=== PATIENT | female | born 1940 | race Caucasian/White ===

== ENCOUNTER 2018-02-09 02:30 | Inpatient (IN) | payer MEDICARE ==
[2018-02-08 13:24] LABS: INR 0.95
[~2018-02-09] VITALS: Ht 167.6 cm; Wt 56.7 kg
[~2018-02-09 02:30] MED LIST: ALBU90AE PO; ALPR-429 PO; ASPI-757 PO; BIMA2.5D5 OP; BUDE10.2 INH; ESTR0.62 PO; HYDR-318 PO; IMI25 PO; LOSA25TA50 PO; MAX75 PO; METO25TA23 PO; MIRA25TA PO; OLME5TAB8 PO; OMEP40CA48 PO; POTA-28 PO; RANI-318 PO; SERT-184 PO; TURM1POW2 MC; [UNRECOGNIZED DRUG - CODE] PO
--- NOTE | 2018-02-09 07:10 | LEVENE H&P ---
DATE OF ADMISSION: February 09, 2018 IDENTIFICATION/CHIEF COMPLAINT The patient is a 77-year-old woman with a chief complaint of left knee pain. HISTORY OF PRESENT ILLNESS The patient has a long standing history of knee arthritis, progressively painful and debilitating, refractory to conservative care. Surgery is indicated to relieve symptoms after failure of nonoperative measures. PAST MEDICAL HISTORY 1. Notable for irregular heart beat. 2. Hypertension. 3. Sleep apnea. 4. Reactive airway disease. 5. COPD. 6. Acid reflux disease. PAST SURGICAL HISTORY Notable for contralateral knee replacement as well as knee arthroscopy. ALLERGIES PENICILLIN CLONIDINE CURRENT MEDICATIONS 1. Benicar 5 mg 2 tablets p.o. per day. 2. Metoprolol 50 mg p.o. q day. 3. Myrbetriq 25 mg p.o. q day. 4. Omeprazole 40 mg p.o. q day. 5. Ranitidine 150 mg p.o. q day. 6. Sertraline 50 mg p.o. q day. 7. Symbicort 2 puffs b.i.d. 8. Triamterene/Hydrochlorothiazide 75/50 mg p.o. q day. FAMILY HISTORY Notable for mother and father both with cancer. SOCIAL HISTORY Notable for smoking about a pack of cigarettes every 3 days for 60 years. She rarely drinks wine on a social basis. REVIEW OF SYSTEMS Negative. PHYSICAL EXAMINATION GENERAL: This is a healthy female who appears stated age. HEENT: Normocephalic, atraumatic. Extraocular muscles intact. NECK: Supple, non-tender. LUNGS: Clear to auscultation bilaterally. HEART: Regular rate and rhythm. ABDOMEN: Soft. ORTHOPEDIC EXAMINATION Left knee has an effusion. She has crepitus noted. She is stiff at the end- range. Gross stability is good. Extensor function is intact. Calves are nontender. Neurovascular function is intact. RADIOGRAPHS Demonstrate degenerative changes in the knee. ASSESSMENT Left knee degenerative joint disease, progressively painful and debilitating, refractory to conservative care. PLAN Per patient request, we are going to proceed with knee replacement. The nature of the procedure, the risks, benefits, the anticipated rehabilitative course were reviewed. Risks include but are not limited to , major medical or anesthetic complication, infection, neurovascular injury, stiffness, scarring, fracture, tendon rupture, tendon rupture, instability, implant loosening, migration or failure, blood transfusion, re-tear, progressive arthritis, persistent or recurrent pain or symptoms, need for additional surgery and other unforeseen. She understands and wishes to proceed. A signed permit is placed in the chart. No guarantees are given or implied. AVA
[2018-02-09] MEDS ORDERED: LIDOCAINE/SOD BICARB 8.4% SYR ID ONE (10:00)
[2018-02-09] MEDS ORDERED: TRANEXAMIC AC 1000 MG/10ML SDV 1,000 MG in DEXTROSE 5% 50 ML BAG 50 ML IV ONE (10:00)
[2018-02-09] MEDS ORDERED: MIDAZOLAM 2 MG/2 ML VIAL IVP PRN (10:00)
[2018-02-09] MEDS ORDERED: BACITRACIN 50000 UNIT/VIAL 100,000 UNIT in NS 0.9% 3000 ML IRRIGATION BAG 3,000 ML IR ONE (10:00)
[2018-02-09] MEDS ORDERED: PREGABALIN 75 MG CAPSULE PO ONE (10:00)
[2018-02-09] MEDS ORDERED: cloNIDine EPIDUR INJ 100MCG/ML 40 MCG, ROPIVACAINE 0.5% 20 ML VIAL 25 ML, EPINEPHrine H... INJ ONE ×2 (10:00→14:00)
[2018-02-09] MEDS ORDERED: CELECOXIB 200 MG CAP PO ONE (10:00)
[2018-02-09] MEDS ORDERED: CLINDAMYCIN(*) 900 MG/NS 50 ML 50 ML IVPB ONE (10:00)
[2018-02-09] MEDS ORDERED: ACETAMINOPHEN 500 MG TAB PO ONE (10:00)
[2018-02-09] MEDS ORDERED: NORMOSOL R SOLN(*) 1000 ML BAG 1,000 ML IV PRN ×2 (10:00→17:20)
[2018-02-09] MEDS ORDERED: NS(*) 0.9% 1000 ML BAG 1,000 ML IV ONE (12:15)
[2018-02-09 12:19] VITALS: BP 160/83
[2018-02-09] MEDS ORDERED: fentaNYL CITR 100 MCG/2 ML AMP ONE ×2 (13:20→17:41)
[2018-02-09] MEDS ORDERED: DEXAMETHASONE SOD 4 MG/ML VIAL ONE (13:20)
[2018-02-09] MEDS ORDERED: ONDANSETRON 4 MG/2 ML VIAL ONE (13:20)
[2018-02-09] MEDS ORDERED: LIDOCAINE MPF 1% 5 ML VIAL ONE (13:20)
[2018-02-09] MEDS ORDERED: PROPOFOL EMUL(*) 10MG/ML 20 ML 20 ML ONE (13:20)
[2018-02-09] MEDS ORDERED: KETAMINE HCL 200 MG/20 ML MDV ONE (13:25)
[2018-02-09] MEDS ORDERED: MIDAZOLAM 2 MG/2 ML VIAL ONE (14:17)
[2018-02-09] MEDS ORDERED: LACTATED RINGER 3000 ML BAG IR ONE (15:57)
[2018-02-09] MEDS ORDERED: NS 0.9% IRRIGATION 1000ML PLCT IR ONE (15:58)
[2018-02-09] MEDS ORDERED: ALBUMIN HUMAN 5% 250 ML BTL 250 ML ONE (17:03)
[2018-02-09] MEDS ORDERED: ACETAMINOPHEN 325 MG TAB PO PRN (17:20)
[2018-02-09] MEDS ORDERED: diphenhydrAMINE 25 MG CAP PO PRN (17:20)
[2018-02-09] MEDS ORDERED: ZOLPIDEM TARTRATE 5 MG TAB PO PRN (17:20)
[2018-02-09] MEDS ORDERED: PROMETHAZINE 25 MG/ML 1 ML AMP IVP PRN (17:20)
[2018-02-09] MEDS ORDERED: MAGNESIUM HYDROXIDE* 30ML UDCP PO PRN (17:20)
[2018-02-09] MEDS ORDERED: BENZOCAINE/MENTHOL 1 EACH LOZG PO PRN (17:20)
[2018-02-09] MEDS ORDERED: FLUSH 10 ML SYR IVP PRN (17:20)
[2018-02-09] MEDS ORDERED: diphenhydrAMINE 50 MG/ML VIAL IVP PRN (17:20)
[2018-02-09] MEDS ORDERED: BISACODYL 10 MG SUPP PR PRN (17:20)
[2018-02-09 18:22] VITALS: BP 114/73
[2018-02-09] MEDS ORDERED: ALBUTEROL 8 GM INHALER INH PRN ×2 (18:45→20:25)
--- NOTE | 2018-02-09 18:52 | Hospitalist Consultation ---
History of Present Illness Requesting Physician Dr. Constantino Reason for Consult Hypertension History of Present Illness This patient was admitted for knee replacement surgery. It is reported that the surgery went well and was without complication. History Problems: (1) COPD (chronic obstructive pulmonary disease) Status: Chronic (2) Depression with anxiety Status: Chronic (3) HTN (hypertension) Status: Chronic (4) History of supraventricular tachycardia Status: Chronic (5) Sleep disturbance, unspecified Status: Chronic (6) ONEIL on CPAP Status: Chronic (7) History of Norman's esophagus Status: Chronic Home Meds Reported Medications Turmeric (TURMERIC) 1 Gm Powder, 1 GM MC BIDBL 02/03/18 Imipramine Hcl (IMIPRAMINE HCL) 25 Mg Tablet, 25 MG PO DAILY 02/02/18 Mirabegron (MYRBETRIQ) 25 Mg Tab.er.24h, 25 MG PO DAILY 02/02/18 Losartan Potassium (LOSARTAN POTASSIUM) 25 Mg Tablet, 25 MG PO BID 02/02/18 Triamterene/Hctz (TRIAMTERENE-HCTZ 75-50 MG TAB) 1 Each Tab, 1 EACH PO DAILY, TAB 11/02/15 Albuterol Sulfate (Proair Respiclick) 90 Mcg Aer.pow.ba, 1-2 PUFF PO PRN 11/01/15 Bimatoprost (LUMIGAN) 2.5 Ml Drops, 1 DROP OP QDAY 11/01/15 Budesonide/Formoterol Fumarate (SYMBICORT 160-4.5 MCG INHALER) 10.2 Gm Inh, 2 SPRAY INH BID, INH 11/01/15 Estrogens, Conjugated 0.625 Mg Tab (PREMARIN 0.625 MG TAB) 0.625 Mg Tablet, 0.625 MG PO 3XW 11/01/15 Metoprolol Succinate (METOPROLOL SUCCINATE) 25 Mg Tab.er.24h, 1 TAB PO BID, TAB 11/01/15 Omeprazole (OMEPRAZOLE) 40 Mg Capsule.dr, 20 MG PO DAILY, CAP 11/01/15 Potassium Chloride (POTASSIUM CHLORIDE) 10 Meq Tablet.er, 10 MEQ PO QDAY 11/01/15 Ranitidine Hcl (RANITIDINE HCL) 150 Mg Tablet, 150 MG PO QDAY 11/01/15 Sertraline Hcl (SERTRALINE HCL) 50 Mg Tablet, 1 TAB PO TID, TAB 11/01/15 Discontinued Reported Medications Hydrocodone/Acetaminophen (Lortab 7.5-325 mg Tablet) 1 Each Tablet, 1-2 TAB PO Q4H PRN for PAIN, #100 11/09/15 Alprazolam (XANAX) 0.5 Mg Tablet, 0.5 TAB PO PRN PRN for ANXIETY, TAB 11/01/15 Olmesartan Medoxomil (BENICAR) 5 Mg Tablet, 10 MG PO QDAY 11/01/15 Discontinued Scripts Aspirin (ASPIRIN) 325 Mg Tablet, 325 MG PO QDAY, #30 TAB Prov:YUMIKO DIXON DO 11/08/15 Allergies: Coded Allergies: Penicillins (Verified Allergy, Severe, SWELLING, ITCHING , 11/01/15) furosemide (Verified Allergy, Unknown, COUGHING , 11/01/15) nickel (Verified Allergy, Unknown, ITCHY BLISTERS, 02/02/18) JEWELRY, SNAPS, METAL HOOKS clonidine (Verified Adverse Reaction, Unknown, HALLUCINATIONS, 11/01/15) Patient History: FH: colon cancer MOTHER FH: pancreatic cancer MOTHER FH: prostate carcinoma FATHER Hx Smoking: Yes (1 ppd x 50 yrs, DOWN TO 7 CIG/DAY) Smoking Status: Current: Every Day Smoker Caffeine Intake: Coffee Caffeine/Cups Per Day: 4 DECAF Hx Alcohol Use: Yes Hx Substance Use Disorder: No Social Drug Use: Never Review of Systems All Systems Reviewed/Normal: Yes Exam Vital Signs Vital Signs Date Time Temp Pulse Resp B/P (MAP) Pulse Ox O2 Delivery O2 Flow Rate FiO2 02/09/18 18:22 98.8 75 16 114/73 (87) 88 Nasal Cannula 2.0 Neuro: No Gross deficits Cardiovascular: Regular Rate and Rhythm Respiratory: Clear to Auscultation Extremities: No Edema Integumentary: No Cyanosis Medical Decision Making Data Points Result Diagram: 02/08/18 6169 Assessment and Plan Problems: (1) Status post left knee replacement Assessment & Plan: She is on aspirin prophylaxis. (2) HTN (hypertension) Status: Chronic Assessment & Plan: She is on chronic treatment with metoprolol, triamterene, and losartan. All of these have been ordered with hold parameters. (3) COPD (chronic obstructive pulmonary disease) Status: Chronic Assessment & Plan: She is on chronic treatment with Symbicort and albuterol. (4) Depression with anxiety Status: Chronic Assessment & Plan: She is on chronic treatment with sertraline. (5) ONEIL on CPAP Status: Chronic (6) History of Norman's esophagus Status: Chronic Assessment & Plan: She is on chronic treatment with Prilosec and ranitidine. Venous Thromboembolism Antithrombotics Is Pt On Any Antithrombotics?: No Problem Qualifiers (1) HTN (hypertension): Hypertension type: essential hypertension Qualified Codes: I10 - Essential (primary) hypertension YUMIKO DIXON DO Feb 09, 2018 18:52
[2018-02-09 20:10] VITALS: BP 110/63
[2018-02-09] MEDS: METOPROLOL SUCC XL 25 MG TABCR PO SCH (21:00)
--- NOTE | 2018-02-09 21:07 | RADIOLOGY IMAGING REPORT ---
FACILITY: [facility] PATIENT NAME: Ruma Yin : 1940 MR: [id number] V: [id number] EXAM DATE: ORDERING PHYSICIAN: GÓMEZ ELDER TECHNOLOGIST: Location: [facility] - [place] Patient: Ruma Yin : 1940 Visit/Account:[id number] Date of Sevice: 02/09/2018 LEFT KNEE: Indication: Postop evaluation. Technique: 2 views of the knee were obtained. Comparison: None. Findings: The femoral and tibial components of the knee prosthesis are in satisfactory position and a lignment. There are no signs of occult skeletal fracture. Air is present in the periarticular soft ti ssues, as expected. Atherosclerotic calcification is observed in the femoral, popliteal, and tibial a rteries. IMPRESSION: Satisfactory postop appearance. Report Dictated By: Pilo Thibodeaux MD at 02/09/2018 9:00 PM Report E-Signed By: Pilo Thibodeaux MD at 02/09/2018 9:04 PM WSN:[id number]
[2018-02-09] MEDS: SERTRALINE HCL 50 MG TAB PO SCH (21:41)
[2018-02-09] MEDS: APAP/HYDROCODONE 325/7.5 TAB PO PRN (21:53)
[2018-02-09] MEDS ORDERED: NS(*) 0.9% 250 ML BAG 250 ML ONE (23:49)
[2018-02-10] MEDS: CLINDAMYCIN(*) 900 MG/NS 50 ML 50 ML IVPB SCH ×3 (00:01→14:54)
[2018-02-10 01:48] VITALS: BP 105/60
[2018-02-10 03:12] VITALS: BP 106/67
[2018-02-10] MEDS: BUDESO/FORMOT 160/4.5 MCG 6 GM INH SCH ×2 (06:02→16:58)
[2018-02-10 07:15] VITALS: BP 109/66
[2018-02-10] MEDS: APAP/HYDROCODONE 325/7.5 TAB PO PRN ×3 (07:18→21:33)
[2018-02-10 08:15] VITALS: Ht 167.6 cm; Wt 56.7 kg
[2018-02-10] MEDS: PANTOPRAZOLE SOD 20 MG TABEC PO SCH (08:38)
[2018-02-10] MEDS: CELECOXIB 200 MG CAP PO SCH ×2 (08:38→17:14)
[2018-02-10] MEDS: SERTRALINE HCL 50 MG TAB PO SCH ×3 (08:38→21:27)
[2018-02-10] MEDS: ASPIRIN 325 MG TAB PO SCH (08:38)
[2018-02-10] MEDS: IMIPRAMINE HCL 25 MG TAB PO SCH (08:38)
[2018-02-10] MEDS: POTASSIUM CHL 10 MEQ TABCR PO SCH (08:38)
[2018-02-10] MEDS: TRIAMTERENE/HCTZ 75-50MG TAB PO SCH (08:39)
[2018-02-10] MEDS: LOSARTAN POTASSIUM 50 MG TAB PO SCH (08:39)
[2018-02-10] MEDS: RANITIDINE HCL 150 MG TAB PO SCH (08:39)
[2018-02-10] MEDS: MIRABEGRON 25 MG ER TAB PO SCH (08:39)
[2018-02-10] MEDS: METOPROLOL SUCC XL 25 MG TABCR PO SCH ×2 (08:40→21:27)
--- NOTE | 2018-02-10 09:08 | OPERATIVE REPORT 1 ---
EVENT DATE: February 09, 2018 SURGEON: Arturo Constantino MD ANESTHESIOLOGIST: Arthur Qiu MD ANESTHESIA: General plus spinal block UNIVERSITY ADMINISTRATOR: DANA Pastrana, PHOTOGRAPHIC INTELLIGENCE OFFICER PREOPERATIVE DIAGNOSIS Left knee degenerative joint disease. POSTOPERATIVE DIAGNOSIS Left knee degenerative joint disease. PROCEDURE PERFORMED Left knee total arthroplasty. ESTIMATED BLOOD LOSS Minimal. DRAINS None. SPECIMENS None. COMPLICATIONS None apparent. TOURNIQUET TIME 39 minutes. IMPLANTS USED SimPrintsathlon knee system with 3 left PS femur, 4 standard tibial baseplate, a 31 mm universal, cemented, all-polyethylene patellar button, and an 11 mm PS tibial tray liner, Polyethylene is X3. INDICATIONS Ruma has intractable pain and dysfunction related to her knee arthritis. Surgery is indicated to relieve symptoms after failure of nonoperative measures. DESCRIPTION OF PROCEDURE Patient taken to the operating room and placed supine on the operating table. Spinal block was administered by the anesthesiologist. General anesthesia was induced. Antibiotics were administered IV. The left lower extremity was prepped and draped in the usual sterile fashion for orthopedic surgery. Limb was exsanguinated with an Esmarch bandage. Tourniquet was inflated to 250 mmHg. A midline longitudinal incision was made and carried down through the skin and subcutaneous tissue to the deep fascia. Full-thickness flaps were developed far enough medially to allow medial parapatellar arthrotomy to be performed. Patella was everted. Knee was brought into the flexed position. Fat pad, anterior horns of the menisci, and the cruciate ligaments were debrided. A subperiosteal medial release was performed in a very limited titrated fashion to start to balance the knee. A step drill was used to enter the distal femur. A 10-inch long alignment guide was used to engage the isthmus. Cut is set for 6 degrees of valgus related to the anatomic axis. The 10 mm resection block was applied and pinned. Cuts were made with an oscillating saw. AP sizing guide was applied to the distal femoral cut position for 3 degrees of external rotation over the posterior condyles. Size 3 was optimal without risk of notching. Four-in-one cutting block was applied. Anterior, posterior, posterior chamfer, and anterior chamfer cuts were made respectively. PS block was applied and centered. Medial and lateral bones were removed through the box. Trial femur has nice [id number] fit. Attention was turned to the tibial preparation. The extramedullary guide was applied, positioned for varus, valgus, posterior slope, and rotation. This was set to resect 9 mm from the relatively intact lateral tibial plateau. It was dropped down 1 mm or 2 to ensure an adequate cut. Block is pinned. Extramedullary alignment check is made and cuts made with an oscillating saw. Gaps were balanced and symmetric with no additional releases required. The size 4 tibial baseplate provides optimum bony coverage without soft tissue overhang. This was inserted along with a trial liner and trial femur. Knee is brought to full extension. Patella is taken from the starting thickness of 24 to a residual of 14 with a patellar clamp and oscillating saw. The 31 provides optimal bony coverage without soft tissue overhand. Lug holes are drilled. Patella tracks nicely with the no- touch technique. Final tibial preparation consists of assuring appropriate rotational and translational positioning of the component. The boss is reamed and the fin is punched. Surfaces are lavaged and all components are cemented in a single stage. Once the cement was fully polymerized, tourniquet was deflated, and hemostasis was assured. All of the debris was lavaged from the joint. The 11 PS tibial tray liner fills up the gap ideally, allowing the knee to drop to full extension without hyperextension and providing optimal soft tissue tension and stability. The tray is lavaged and dried and the liner was locked into to the baseplate. Joint is reduced. Arthrotomy is closed in flexion with #2 Ethibond, subcutaneous tissue with 3-0 Vicryl, skin was surgical priscila. Xeroform was applied followed by a dry sterile dressing and compression wrap. The patient was awakened from anesthesia and taken to the recovery room in stable condition having tolerated the procedure well. PLAN Plan is for standard TKA rehab protocol. [facility]
[2018-02-10] MEDS ORDERED: NICOTINE CARTRIDGE 1 EA PO PRN (10:15)
[2018-02-10] MEDS: DIAZEPAM 5 MG TAB PO PRN ×2 (10:28)
--- NOTE | 2018-02-10 10:50 | Hospitalist Progress Note ---
Subjective Progress Notes Subjective She states that she would like nicotine replacement today. She has no complaints otherwise, she had no acute events overnight. Patient Complains of: Cardiovascular: No: Chest Pain Respiratory: No: Shortness of Breath Physical Exam Vital Signs Date Time Temp Pulse Resp B/P (MAP) Pulse Ox O2 Delivery O2 Flow Rate FiO2 02/10/18 09:12 67 02/10/18 07:15 Nasal Cannula 2.0 02/10/18 07:15 97.7 76 18 109/66 (80) Intake and Output 02/10/18 06:59 Intake Total 4560 ml Balance 4560 ml Intake Oral 510 ml IV Total 2050 ml Other 2000 ml # Voids 2 General Appearance: Alert, Awake, No Acute Distress, Afebrile Neuro: No Gross deficits Cardiovascular: Regular Rate and Rhythm Respiratory: No Respiratory Distress, Clear to Auscultation, Other (bronchial secreations noted, cleared by cough) GI: Soft and Non-Tender Psych: Alert & Oriented X3, Appropriate Mood & Affect Result Diagram: 02/08/18 1259 Assessment and Plan Problems: (1) Status post left knee replacement Assessment & Plan: She is on aspirin prophylaxis. (2) HTN (hypertension) Status: Chronic Assessment & Plan: She is on chronic treatment with metoprolol, triamterene, and losartan. All of these have been ordered with hold parameters. (3) COPD (chronic obstructive pulmonary disease) Status: Chronic Assessment & Plan: She is on chronic treatment with Symbicort and albuterol. (4) Depression with anxiety Status: Chronic Assessment & Plan: She is on chronic treatment with sertraline. (5) ONEIL on CPAP Status: Chronic (6) History of Norman's esophagus Status: Chronic Assessment & Plan: She is on chronic treatment with Prilosec and ranitidine. (7) Ready to quit smoking Assessment & Plan: She smokes four cigarettes a day. She reports she would like to stop smoking by using an inhalation nicotine device. We will start nicotine replacement this morning. Exam Sepsis Risk: No Definite Risk Problem Qualifiers (1) HTN (hypertension): Hypertension type: essential hypertension Qualified Codes: I10 - Essential (primary) hypertension WANDY [facility] Feb 10, 2018 10:50
[2018-02-10 11:36] VITALS: BP 151/86
[2018-02-10] MEDS ORDERED: CELECOXIB 200 MG CAP PO ONE (11:50)
[2018-02-10] MEDS: NICOTINE INH SYSTEM 10 MG/INH INH PRN (12:32)
[2018-02-10 15:01] VITALS: BP 133/79
[2018-02-10 18:52] VITALS: BP 137/72
[2018-02-10] MEDS ORDERED: ESTROGENS CONJ 0.625 MG TAB PO SCH (21:00)
[2018-02-10] MEDS ORDERED: BIMATOPROST 2.5 ML BTL 2.5 ML BTL OU SCH (21:00)
[2018-02-11 01:34] VITALS: BP_SYST 88
[2018-02-11 04:28] VITALS: BP 177/98
[2018-02-11] MEDS: APAP/HYDROCODONE 325/7.5 TAB PO PRN ×2 (04:34→10:04)
[2018-02-11] MEDS: NICOTINE INH SYSTEM 10 MG/INH INH PRN (04:36)
[2018-02-11] MEDS: BUDESO/FORMOT 160/4.5 MCG 6 GM INH SCH (06:11)
[2018-02-11 07:46] VITALS: BP 174/98
[2018-02-11] MEDS ORDERED: HYDR-4308 PO (08:22)
[2018-02-11] MEDS: ASPIRIN 325 MG TAB PO SCH (08:27)
[2018-02-11] MEDS: LOSARTAN POTASSIUM 50 MG TAB PO SCH (08:27)
[2018-02-11] MEDS: CELECOXIB 200 MG CAP PO SCH (08:27)
[2018-02-11] MEDS: METOPROLOL SUCC XL 25 MG TABCR PO SCH (08:27)
[2018-02-11] MEDS: IMIPRAMINE HCL 25 MG TAB PO SCH (08:27)
[2018-02-11] MEDS: PANTOPRAZOLE SOD 20 MG TABEC PO SCH (08:27)
[2018-02-11] MEDS: TRIAMTERENE/HCTZ 75-50MG TAB PO SCH (08:28)
[2018-02-11] MEDS: SERTRALINE HCL 50 MG TAB PO SCH (08:28)
[2018-02-11] MEDS: RANITIDINE HCL 150 MG TAB PO SCH (08:28)
[2018-02-11] MEDS: POTASSIUM CHL 10 MEQ TABCR PO SCH (08:28)
[2018-02-11] MEDS: MIRABEGRON 25 MG ER TAB PO SCH (08:30)
[2018-02-11] MEDS ORDERED: ASPI-757 PO (08:53)
[2018-02-11] MEDS ORDERED: [UNRECOGNIZED DRUG - OTHER] PO (08:53)
[2018-02-11] MEDS ORDERED: NIC10R INH (08:53)
--- NOTE | 2018-02-11 12:06 | Hospitalist Progress Note ---
Subjective Progress Notes Subjective She has no complaints this morning. She states she would like to go home today. Patient Complains of: Cardiovascular: No: Chest Pain Respiratory: No: Shortness of Breath Physical Exam Vital Signs Date Time Temp Pulse Resp B/P (MAP) Pulse Ox O2 Delivery O2 Flow Rate FiO2 02/11/18 07:53 83 02/11/18 07:46 99.0 74 14 174/98 (123) Nasal Cannula 2.0 Intake and Output 02/11/18 06:59 Intake Total 2498 ml Balance 2498 ml Intake Oral 2390 ml IV Total 108 ml # Voids 5 General Appearance: Alert, Awake, No Acute Distress, Afebrile Neuro: No Gross deficits Cardiovascular: Regular Rate and Rhythm Respiratory: No Respiratory Distress, Clear to Auscultation GI: Soft and Non-Tender Psych: Alert & Oriented X3, Appropriate Mood & Affect Result Diagram: 02/08/18 0731 Assessment and Plan Problems: (1) Status post left knee replacement Assessment & Plan: She is on aspirin prophylaxis. (2) HTN (hypertension) Status: Chronic Assessment & Plan: She is on chronic treatment with metoprolol, triamterene, and losartan. All of these have been ordered with hold parameters. (3) COPD (chronic obstructive pulmonary disease) Status: Chronic Assessment & Plan: She is on chronic treatment with Symbicort and albuterol. (4) Depression with anxiety Status: Chronic Assessment & Plan: She is on chronic treatment with sertraline. (5) ONEIL on CPAP Status: Chronic (6) History of Norman's esophagus Status: Chronic Assessment & Plan: She is on chronic treatment with Prilosec and ranitidine. (7) Ready to quit smoking Assessment & Plan: She smokes four cigarettes a day. She reports she would like to stop smoking by using an inhalation nicotine device. She will be sent home with prescription for nicotine replacement. She will follow up with her PCP for further smoking cessation. Exam Sepsis Risk: No Definite Risk Problem Qualifiers (1) HTN (hypertension): Hypertension type: essential hypertension Qualified Codes: I10 - Essential (primary) hypertension WANDY JAMESP Feb 11, 2018 12:05
== END 2018-02-11 10:43 | disposition home or self-care (01) | DRG 470 ==
LOC: OR 02:30 → MED 18:15
PROVIDERS: ADMIT Orthopaedic Surgery; ATTEND Orthopaedic Surgery
PROC: 0SRD0J9 Replacement of Left Knee Joint with Synthetic Substitute, Cemented, Open Approach (ICD-10-PCS; principal; 2018-02-09 15:20)
DX: M17.12 Unilateral primary osteoarthritis, left knee (principal); I10 Essential (primary) hypertension; K21.9 Gastro-esophageal reflux disease without esophagitis; F41.8 Other specified anxiety disorders; K22.70 Barrett's esophagus without dysplasia; J44.9 Chronic obstructive pulmonary disease, unspecified; G47.9 Sleep disorder, unspecified; F17.210 Nicotine dependence, cigarettes, uncomplicated; G47.33 Obstructive sleep apnea (adult) (pediatric); Z88.0 Allergy status to penicillin; Z88.8 Allergy status to other drugs, medicaments and biological substances; Z99.81 Dependence on supplemental oxygen; Z90.710 Acquired absence of both cervix and uterus
CPT/HCPCS: 36415; 36416; 82948; 84132; 85610; 86850; 86900; 86901; 94640; 97161; A9270; C1713; C1776; J0171; J0735; J1100; J1885; J2001; J2250; J2405; J2704; J2795; J3010; J3490; J3535; J7050; J7060; P9045